=== PATIENT | male | born 1940 | race Caucasian/White ===

== ENCOUNTER → 2016-07-08 | Day surgery (SDC) | payer MEDICARE, OTHER ==
[~2016-07-08] MED LIST: Lactated Ringers 1,000 ML IV SCH; Propofol 200 MG/20 ML SDV IV ONE
[2016-07-08 09:33] VITALS: BP 140/81
--- NOTE | 2016-07-08 13:53 | OR ---
DATE OF OPERATION: 07/08/2016 PREOPERATIVE DIAGNOSIS: SCREENING COLONOSCOPY. POSTOPERATIVE DIAGNOSIS: SCREENING COLONOSCOPY. SURGEON: Oneil Tinoco MD PROCEDURE: COLONOSCOPY TO HEPATIC FLEXURE. 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 COMPLICATIONS: None. SPECIMEN: None. FINDINGS: 1. Incomplete colonoscopy to hepatic flexure. 2. Mild sigmoid diverticulosis. RECOMMENDATIONS: Follow up colonoscopy in an as-needed basis at this point. INDICATIONS: The patient is a 76-year-old male who has been about 10 or 11 years since his last scope. We elected to proceed with that one last screening. DESCRIPTION OF PROCEDURE: The patient was prepped and draped, placed in left lateral decubitus position. A lubricated Olympus colonoscope was inserted and for the most part, easily advanced into the transverse colon. The patient was very redundant there, and we were able to get the scope over to the hepatic flexure, but multiple position changes and palpation abdomen did not allow us to get down into the right colon. The bowel prep was adequate. Upon withdrawal of the scope throughout the transverse and descending colon, there was no abnormality seen. The patient does have scattered diverticular disease, very mild. In the sigmoid colon, no polyps, masses, ulcerations, or bleeding sites. No vascular abnormalities or signs of colitis. The rectal vault was unremarkable. Retroflexion showed no anal lesions. Air was then suctioned. Scope removed without complication. JAIMIE/DC /[id number]
== END ==
LOC: CC.SDS 08:24
PROVIDERS: ATTEND Family Medicine
DX: Z12.11 Encounter for screening for malignant neoplasm of colon (principal); K57.30 Diverticulosis of large intestine without perforation or abscess without bleeding; G47.30 Sleep apnea, unspecified; Z95.2 Presence of prosthetic heart valve; Z79.01 Long term (current) use of anticoagulants
CPT/HCPCS: 36415; 85610; G0121; J2704; J7120; 00810

== ENCOUNTER 2022-08-06 10:34 | Emergency (ER) | payer MEDICARE, OTHER ==
[2022-08-06 10:38] VITALS: BP 136/77; PULSE 80
[2022-08-06] MEDS: Doxycycline 100 MG Tab PO ONE (11:01)
== END 2022-08-06 11:19 | disposition home or self-care (01) ==
LOC: CC.ED 10:34
DX: S20.362A Insect bite (nonvenomous) of left front wall of thorax, initial encounter (principal); E78.00 Pure hypercholesterolemia, unspecified; I10 Essential (primary) hypertension; Z79.899 Other long term (current) drug therapy; W57.XXXA Bitten or stung by nonvenomous insect and other nonvenomous arthropods, initial encounter
CPT/HCPCS: 99281; 99283; A9270-GY